=== PATIENT | male | born 1990 | race Caucasian/White ===

== ENCOUNTER 2018-04-25 00:18 | Emergency (ER) | payer OTHER ==
[2018-04-25] MEDS: ETOMIDATE 20 MG INJ IV (01:04)
== END 2018-04-25 03:20 | disposition home or self-care (01) ==
LOC: E/R 00:18
DX: S43.005A Unspecified dislocation of left shoulder joint, initial encounter (principal); F17.210 Nicotine dependence, cigarettes, uncomplicated; X58.XXXA Exposure to other specified factors, initial encounter; Y92.9 Unspecified place or not applicable
CPT/HCPCS: 23650; 73020; 73030; 94770; 99285-25